=== PATIENT | male | born 1945 | race African-American/Black ===

== ENCOUNTER 2017-02-26 11:25 | Day surgery (SDC) | payer MEDICARE, MEDICAID ==
[~2017-02-26] VITALS: Ht 177.8 cm; Wt 88.9 kg
[~2017-02-26 11:25] MED LIST: ATOR20TA PO; DABI150C PO; EMPA10TA PO; INSU100I19 SQ; INSU100I3 SUBCUT; NICARDIPINE 100MCG/ML 10ML VIAL (CATH LAB) IV ONE; NITROGLYCERIN 50MCG/ML 10ML VIAL (CATH LAB) IV ONE
[2017-02-26] MEDS ORDERED: NIFE30TA94 PO (12:16)
[2017-02-26] MEDS ORDERED: MIDAZOLAM HCL 2 MG/2 ML VIAL ONE ×2 (12:47→13:25)
[2017-02-26] MEDS ORDERED: LIDOCAINE HCL 1% 20ML VIAL (Pyxis) INJ ONE (12:47)
[2017-02-26] MEDS ORDERED: FENTANYL CITRATE/PF 50MCG/ML 2ML VIAL ONE (12:48)
[2017-02-26] MEDS ORDERED: IODIXANOL 320MG/ML 100 ML BOTTLE IV ONE (12:48)
[2017-02-26] MEDS ORDERED: HEPARIN SODIUM 1,000 UNIT/1ML VIAL IV ONE (13:00)
[2017-02-26] MEDS ORDERED: HYDROMORPHONE HCL/PF 2MG/ML (OR) ONE (13:01)
== END 2017-02-26 17:00 | disposition home or self-care (01) ==
LOC: CARD 11:25
PROVIDERS: ATTEND Specialist
DX: I48.91 Unspecified atrial fibrillation (principal); I10 Essential (primary) hypertension; I25.10 Atherosclerotic heart disease of native coronary artery without angina pectoris; E78.5 Hyperlipidemia, unspecified; E11.9 Type 2 diabetes mellitus without complications
CPT/HCPCS: 82962; 93458; C1769; C1893; J1170; J1644; J2250; J3010; J3490; Q9967

== ENCOUNTER 2017-10-28 10:44 | Emergency (ER) | payer MEDICAID, MEDICARE ==
[~2017-10-28] VITALS: Ht 175.3 cm; Wt 87.0 kg
[~2017-10-28 10:44] MED LIST changes: -NICARDIPINE 100MCG/ML 10ML VIAL (CATH LAB) IV ONE; +NIFE30TA94 PO; -NITROGLYCERIN 50MCG/ML 10ML VIAL (CATH LAB) IV ONE
[2017-10-28 11:29] VITALS: BP 127/69
== END 2017-10-28 14:05 | disposition home or self-care (01) ==
LOC: ER 13:47
DX: M62.838 Other muscle spasm (principal); I48.91 Unspecified atrial fibrillation; E11.9 Type 2 diabetes mellitus without complications; Z79.01 Long term (current) use of anticoagulants; Z79.4 Long term (current) use of insulin; V49.88XA Car occupant (driver) (passenger) injured in other specified transport accidents, initial encounter; Y93.89 Activity, other specified; Y92.410 Unspecified street and highway as the place of occurrence of the external cause; Y99.8 Other external cause status
CPT/HCPCS: 99283

== ENCOUNTER 2019-09-27 06:33 | Day surgery (SDC) | payer MEDICARE, MEDICAID ==
[~2019-09-27] VITALS: Ht 170.2 cm; Wt 87.1 kg
[~2019-09-27 06:33] MED LIST changes: +APIX5TAB PO; +ASPI-1393 PO; -DABI150C PO; -EMPA10TA PO; -NIFE30TA94 PO
[2019-09-27] MEDS ORDERED: SKIN ADHESIVE 0.7 GM EA TOP ONE (06:59)
[2019-09-27] MEDS ORDERED: BUPIVACAINE HCL 0.5% (5MG/ML) 50ML ONE (06:59)
[2019-09-27 07:29] LABS: BASOPHILS % 0.5 % (0.0-2.0); EOSINOPHILS % 1.3 % (0.0-5.0); HEMOGLOBIN. 13.8 g/dL (14.0-18.0); LYMPHOCYTES % 20.1 % (20.0-50.0); MEAN CORPUSCULAR HEMOGLOBIN 32.3 pg (28.0-32.0); MEAN CORPUSCULAR VOLUME 95.9 fL (80.0-94.0); MEAN PLATELET VOLUME 8.3 fl (7.4-10.4); MONOCYTES % 12.4 % (2.0-8.0); NEUTROPHILS % 65.7 % (40.0-76.0); PLATELET 213 x1000/uL (130-400); RED BLOOD CELL COUNT 4.28 mill/uL (4.7-6.1); RED CELL DISTRIBUTION WIDTH 12.4 % (11.6-14.6)
[2019-09-27] MEDS ORDERED: PROPOFOL 10MG/ML 100ML 100 ML IV ONE (11:01)
[2019-09-27] MEDS ORDERED: FLEC150T2 PO (12:31)
== END 2019-09-27 13:45 | disposition home or self-care (01) ==
LOC: OR 06:33
PROVIDERS: ATTEND Surgery
DX: D17.24 Benign lipomatous neoplasm of skin and subcutaneous tissue of left leg (principal); I11.9 Hypertensive heart disease without heart failure; E11.9 Type 2 diabetes mellitus without complications; I48.91 Unspecified atrial fibrillation; M19.90 Unspecified osteoarthritis, unspecified site; Z79.82 Long term (current) use of aspirin; Z79.4 Long term (current) use of insulin; Z79.899 Other long term (current) drug therapy; Z98.890 Other specified postprocedural states; Z82.49 Family history of ischemic heart disease and other diseases of the circulatory system; Z83.3 Family history of diabetes mellitus
CPT/HCPCS: 27327; 36415; 82962; 85025; 88305; J2704; J3010; J3490; J0690; J2250

== ENCOUNTER 2021-09-21 16:24 | Emergency (ER) | payer MEDICARE, MEDICAID ==
[~2021-09-21] VITALS: Ht 170.2 cm; Wt 90.9 kg
[~2021-09-21 16:24] MED LIST changes: -ASPI-1393 PO; +ASPI-1497 PO; +FLEC150T2 PO
[2021-09-21] MEDS ORDERED: AMLODIPINE 5MG TABLET PO ONE (19:30)
[2021-09-21 20:33] LABS: BASOPHILS % 0.7 % (0.0-2.0); EOSINOPHILS % 2.4 % (0.0-5.0); HEMATOCRIT. 41.3 % (42.0-52.0); HEMOGLOBIN. 13.9 g/dL (14.0-18.0); LYMPHOCYTES % 21.5 % (20.0-50.0); MEAN CORPUSCULAR HEMOGLOBIN 31.9 pg (28.0-32.0); MEAN PLATELET VOLUME 8.7 fl (7.4-10.4); MONOCYTES % 14.4 % (2.0-8.0); PLATELET 196 x1000/uL (130-400); RED BLOOD CELL COUNT 4.35 mill/uL (4.7-6.1); RED CELL DISTRIBUTION WIDTH 12.7 % (11.6-14.6)
[2021-09-21 22:12] LABS: CHLORIDE 104 mEq/L (98-107)
[2021-09-21 22:47] VITALS: BP 182/71
== END 2021-09-21 23:05 | disposition home or self-care (01) ==
LOC: ER 16:24
DX: R04.0 Epistaxis (principal); I48.91 Unspecified atrial fibrillation; E11.9 Type 2 diabetes mellitus without complications; Z79.82 Long term (current) use of aspirin; Z79.899 Other long term (current) drug therapy; Z79.01 Long term (current) use of anticoagulants
CPT/HCPCS: 36415; 71045; 80048; 85025; 99285

== ENCOUNTER 2022-09-01 09:48 | Inpatient (IN) | payer MEDICARE, MEDICAID ==
[~2022-09-01] VITALS: Ht 170.2 cm; Wt 86.2 kg
[2022-09-01] MEDS ORDERED: METF-873 PO (12:04)
[2022-09-01] MEDS ORDERED: AMLO5TAB88 PO ×2 (12:04→17:10)
[2022-09-01] MEDS ORDERED: GABA-532 PO ×2 (12:04→17:08)
[2022-09-01] MEDS ORDERED: GENTAMICIN SULF 40MG/ML 2ML VIAL ONE (12:36)
[2022-09-01] MEDS ORDERED: GENTAMICIN/NS IRRIGATION 500 ML IR ONE (12:36)
[2022-09-01] MEDS ORDERED: LIDOCAINE HCL/PF 1% 10 MG/ML 5ML VIAL ONE (12:36)
[2022-09-01 12:44] LABS: BASOPHILS % 0.3 % (0.0-2.0); EOSINOPHILS % 0.2 % (0.0-5.0); HEMATOCRIT. 41.5 % (42.0-52.0); LYMPHOCYTES % 15.9 % (20.0-50.0); MEAN CORPUSCULAR HEMOGLOBIN 32.2 pg (28.0-32.0); MEAN CORPUSCULAR VOLUME 95.3 fL (80.0-94.0); MEAN PLATELET VOLUME 8.1 fl (7.4-10.4); MONOCYTES % 6.9 % (2.0-8.0); NEUTROPHILS % 76.7 % (40.0-76.0); PLATELET 217 x1000/uL (130-400); RED BLOOD CELL COUNT 4.35 mill/uL (4.7-6.1); RED CELL DISTRIBUTION WIDTH 12.8 % (11.6-14.6)
[2022-09-01] MEDS ORDERED: IODIXANOL 320MG/ML 100 ML BOTTLE IV ONE (12:46)
[2022-09-01 12:57] LABS: CHLORIDE 97 mEq/L (98-107)
[2022-09-01] MEDS ORDERED: LIDOCAINE HCL 1% 20ML VIAL (Pyxis) INJ ONE (13:04)
[2022-09-01] MEDS ORDERED: FENTANYL CITRATE/PF 50MCG/ML 2ML VIAL ONE ×2 (13:05→14:03)
[2022-09-01] MEDS ORDERED: PROPOFOL 200MG/20ML VIAL IV ONE (13:05)
[2022-09-01] MEDS ORDERED: MIDAZOLAM HCL 2 MG/2 ML VIAL ONE ×2 (13:05→14:03)
[2022-09-01] MEDS ORDERED: CEFAZOLIN SODIUM 1000MG/VIAL ONE (13:13)
[2022-09-01 13:20] LABS: INR 1.1; PROTHROMBIN TIME 11.8 sec (9.6-11.0)
[2022-09-01] MEDS ORDERED: ONDANSETRON HCL 4MG/2ML INJ IV PRN (14:00)
[2022-09-01] MEDS ORDERED: HYDROMORPHONE HCL/PF 2MG/ML CPJ IV PRN (14:00)
[2022-09-01] MEDS ORDERED: LABETALOL 5MG/ML SYR 20 MG/4 ML SYRINGE IV PRN (14:00)
[2022-09-01] MEDS ORDERED: MEPERIDINE HCL/PF 25MG/ML CPJ IV PRN (14:00)
[2022-09-01] MEDS ORDERED: HYDROCODONE/ACETAMINOPHEN 5/325MG TABLET PO PRN (15:15)
[2022-09-01] MEDS ORDERED: APIX5TAB PO (17:06)
[2022-09-01] MEDS ORDERED: IBUP-2029 PO (17:07)
[2022-09-01] MEDS ORDERED: ATOR20TA PO (17:09)
[2022-09-01] MEDS ORDERED: FLEC50TA2 PO (17:11)
[2022-09-01] MEDS ORDERED: PRIM50TA5 PO (17:12)
[2022-09-01 17:25] VITALS: BP 154/79
[2022-09-01 17:26] VITALS: BP 154/79
[2022-09-01 19:02] VITALS: BP 161/84
[2022-09-01 20:13] VITALS: BP 156/91
[2022-09-01] MEDS: BLOOD SUGAR DIAGNOSTIC STRIP TEST SCH (20:29)
[2022-09-01] MEDS ORDERED: DEXTROSE 50% WATER 50ML SYRINGE IV PRN (20:30)
[2022-09-01] MEDS ORDERED: ATORVASTATIN CALCIUM 20MG TABLET PO SCH (21:00)
[2022-09-01] MEDS: INSULIN LISPRO 100 UNITS/ML SUBCUT SCH (21:40)
[2022-09-01 22:13] VITALS: BP 147/68
[2022-09-02] VITALS (7 sets, daily range): BP systolic 124–176; BP diastolic 64–90
[2022-09-02] MEDS ORDERED: INSULIN LISPRO 100 UNITS/ML SUBCUT NR
[2022-09-02] MEDS: BLOOD SUGAR DIAGNOSTIC STRIP TEST SCH ×2 (05:58→12:07)
[2022-09-02 06:38] LABS: BASOPHILS % 0.4 % (0.0-2.0); HEMATOCRIT. 37.4 % (42.0-52.0); HEMOGLOBIN. 12.7 g/dL (14.0-18.0); LYMPHOCYTES % 17.4 % (20.0-50.0); MEAN CORPUSCULAR HEMOGLOBIN 31.8 pg (28.0-32.0); MEAN CORPUSCULAR VOLUME 93.7 fL (80.0-94.0); MEAN PLATELET VOLUME 8.3 fl (7.4-10.4); MONOCYTES % 12.4 % (2.0-8.0); NEUTROPHILS % 68.8 % (40.0-76.0); PLATELET 195 x1000/uL (130-400); RED BLOOD CELL COUNT 3.99 mill/uL (4.7-6.1); RED CELL DISTRIBUTION WIDTH 12.5 % (11.6-14.6)
[2022-09-02] MEDS: INSULIN LISPRO 100 UNITS/ML SUBCUT SCH ×2 (08:20→12:40)
[2022-09-02] MEDS ORDERED: GABAPENTIN 300MG CAPSULE PO SCH (09:00)
[2022-09-02] MEDS ORDERED: ASPIRIN 81MG EC TABLET PO SCH (09:00)
[2022-09-02] MEDS ORDERED: AMLODIPINE 5MG TABLET PO SCH ×2 (09:00→15:15)
[2022-09-02 09:34] LABS: CHLORIDE 98 mEq/L (98-107)
[2022-09-02] MEDS ORDERED: NALOXONE HCL 0.4MG/ML VIAL IV PRN (15:15)
[2022-09-02] MEDS ORDERED: APIXABAN 5 MG TABLET PO SCH (20:00)
[2022-09-05] MEDS ORDERED: GABA-532 PO (23:24)
[2022-09-05] MEDS ORDERED: IBUP-2029 PO (23:24)
[2022-09-05] MEDS ORDERED: ATOR10TA PO (23:24)
[2022-09-05] MEDS ORDERED: AMLO5TAB88 PO (23:24)
== END 2022-09-02 13:49 | disposition home health service (06) | DRG 243 ==
LOC: CCL 09:48 → 3WST 17:30
PROVIDERS: ADMIT Internal Medicine Clinical Cardiac Electrophysiology; ATTEND Internal Medicine Clinical Cardiac Electrophysiology
PROC: 0JH606Z Insertion of Pacemaker, Dual Chamber into Chest Subcutaneous Tissue and Fascia, Open Approach (ICD-10-PCS; principal; 2022-09-01)
PROC: 02H63JZ Insertion of Pacemaker Lead into Right Atrium, Percutaneous Approach (ICD-10-PCS; 2022-09-01)
PROC: 02HK3JZ Insertion of Pacemaker Lead into Right Ventricle, Percutaneous Approach (ICD-10-PCS; 2022-09-01)
PROC: B5171ZZ Fluoroscopy of Left Subclavian Vein using Low Osmolar Contrast (ICD-10-PCS; 2022-09-01)
PROC: 5A2204Z Restoration of Cardiac Rhythm, Single (ICD-10-PCS; 2022-09-01)
DX: I49.5 Sick sinus syndrome (principal); I48.11 Longstanding persistent atrial fibrillation; I44.0 Atrioventricular block, first degree; E78.5 Hyperlipidemia, unspecified; E11.9 Type 2 diabetes mellitus without complications; I10 Essential (primary) hypertension; I25.10 Atherosclerotic heart disease of native coronary artery without angina pectoris; Z72.0 Tobacco use; Z79.01 Long term (current) use of anticoagulants; Z79.4 Long term (current) use of insulin; Z79.899 Other long term (current) drug therapy; Z89.029 Acquired absence of unspecified finger(s)
CPT/HCPCS: 33208; 36415; 71045; 75820; 80048; 82962; 83036; 85025; 92960; 93005; A4565; C1769; C1785; C1898; J0690; J1580; J1815; J2250; J2704; J3010; J3490; Q9967

== ENCOUNTER 2023-04-04 17:37 | Emergency (ER) | payer MEDICARE, MEDICAID ==
[~2023-04-04] VITALS: Ht 170.2 cm; Wt 81.6 kg
[~2023-04-04 17:37] MED LIST changes: +AMLO5TAB88 PO; +ATOR10TA PO; -ATOR20TA PO; -FLEC150T2 PO; +GABA-532 PO; +IBUP-2029 PO; -INSU100I19 SQ; -INSU100I3 SUBCUT
[2023-04-04] MEDS ORDERED: TRANEXAMIC ACID 1,000 MG/10 ML TP ONE (20:30)
[2023-04-04] MEDS ORDERED: TRANEXAMIC ACID 1,000 MG/10 ML TP NR (22:00)
[2023-04-05 00:04] VITALS: BP 140/60
== END 2023-04-05 00:06 | disposition home or self-care (01) ==
LOC: ER 17:37
DX: K06.8 Other specified disorders of gingiva and edentulous alveolar ridge (principal); I48.91 Unspecified atrial fibrillation; E11.9 Type 2 diabetes mellitus without complications; Z79.82 Long term (current) use of aspirin
CPT/HCPCS: 99283